=== PATIENT | female | born 1965 | race Caucasian/White ===

== ENCOUNTER 2025-06-09 09:03 | Outpatient (CLI) | payer OTHER | END 2025-06-09 09:04 | disposition home or self-care (01) | LOC: CSHMAMMO 09:03 | PROVIDERS: ATTEND Student in an Organized Health Care Education/Training Program | DX: Z12.31 Encounter for screening mammogram for malignant neoplasm of breast (principal); N64.89 Other specified disorders of breast | CPT/HCPCS: 77063; 77067 ==

== ENCOUNTER 2025-06-11 08:47 | Outpatient (CLI) | payer OTHER | END 2025-06-11 08:48 | disposition home or self-care (01) | LOC: CSHSLEEP 08:47 | PROVIDERS: ATTEND Student in an Organized Health Care Education/Training Program | DX: G47.33 Obstructive sleep apnea (adult) (pediatric) (principal); E66.9 Obesity, unspecified; Z68.34 Body mass index [BMI] 34.0-34.9, adult; R06.83 Snoring | CPT/HCPCS: 95800 ==